=== PATIENT | female | born 1950 ===

== ENCOUNTER 2018-03-25 20:27 | Outpatient (REF) | payer OTHER, SELFPAY ==
[2018-03-25 21:21] LABS: ALT 19 U/L (12-78); AST 19 U/L (15-37); Albumin 3.6 g/dL (3.4-5.0); Alkaline Phosphatase 66 U/L (46-116); Anion Gap 3.5 mmol/L (3-11); BUN 12 mg/dL (7-18); Bilirubin, Total 0.4 mg/dL (0.2-1.0); CO2 30.5 mmol/L (21.0-32.0); CREATININE 0.74 mg/dL (0.55-1.02); Calcium 9.6 mg/dL (8.5-10.1); Chloride 105 mmol/L (98-107); Cholesterol 333 mg/dL (50-200); Glucose 95 mg/dL (70-100); HDL Cholesterol 53 mg/dL (40-60); LDL CHOLESTEROL 256 mg/dL (<100); Potassium 4.2 mmol/L (3.5-5.1); Sodium 139 mmol/L (136-145); TSH (W/Ref FT4) 9.72 uIU/mL (0.358-3.74); Total Protein 6.6 g/dL (6.4-8.2); Triglyceride 126 mg/dL (30-150)
[2018-03-25 22:21] LABS: FREE T4 0.88 ng/dL (0.76-1.46)
== END 2018-03-25 20:47 ==
LOC: NCHCN 20:27
PROVIDERS: Referring Provider Family Medicine; Visit Provider Family Medicine
DX: F41.9 Anxiety disorder, unspecified (principal); E78.5 Hyperlipidemia, unspecified; K58.9 Irritable bowel syndrome, unspecified; N20.0 Calculus of kidney
CPT/HCPCS: 80053; 80061; 83721; 84439; 84443

== ENCOUNTER 2019-05-12 10:13 | Outpatient (REF) | payer OTHER, SELFPAY ==
[2019-05-12 22:14] LABS: ALT 21 U/L (14-59); AST 12 U/L (15-37); Albumin 3.8 g/dL (3.4-5.0); Alkaline Phosphatase 53 U/L (46-116); Anion Gap 5.9 mmol/L (3-11); BUN 12 mg/dL (7-18); Bilirubin, Total 0.5 mg/dL (0.2-1.0); CO2 31.1 mmol/L (21.0-32.0); CREATININE 0.66 mg/dL (0.55-1.02); Calculated LDL 253 mg/dL; Chloride 104 mmol/L (98-107); Cholesterol 329 mg/dL (50-200); Glucose 92 mg/dL (70-100); HDL Cholesterol 58 mg/dL (40-60); Potassium 4.3 mmol/L (3.5-5.1); Sodium 141 mmol/L (136-145); TSH 5.68 uIU/mL (0.36-3.74); Total Protein 6.6 g/dL (6.4-8.2); Triglyceride 90 mg/dL (30-150)
== END 2019-05-12 10:33 ==
LOC: NCHCN 10:13
PROVIDERS: Visit Provider Family Medicine
DX: Z00.00 Encounter for general adult medical examination without abnormal findings (principal); E03.9 Hypothyroidism, unspecified; E78.5 Hyperlipidemia, unspecified; E66.3 Overweight
CPT/HCPCS: 80053; 80061; 84443